=== PATIENT | male | born 1960 | race Caucasian/White ===

== ENCOUNTER 2016-02-26 20:27 | Emergency (ER) ==
[2016-02-26] MEDS ORDERED: MOTRIN ONE (20:57)
[2016-02-26] MEDS ORDERED: MOTRIN PO ONE (21:00)
--- NOTE | 2016-02-26 21:23 | PROVIDER DOCUMENTATION ---
HPI-Respiratory General <Andree Rowley - Last Filed: 02/26/16 21:35> - General Source: patient - History of Present Illness-Resp Quality of Pain: reports: aching Severity in ED: reports: mild Onset/Duration: reports: 3 days ago Timing: reports: still present Cough Quality/Degree: reports: mild Episode Frequency: no prior episodes Current Respiratory Medication Therapy: Initiated see nurses note Associated Symptoms: reports: cough, fever/chills, headache, short of breath, wheezing Similar Symptoms Previously?: No Recently seen or treated by another doctor?: No <Krysta Bush - Last Filed: 02/26/16 21:45> - General Chief Complaint: Cold Symptoms Stated Complaint: UPPER RESP. Time Seen by Provider: 02/26/16 21:05 Allergies/Adverse Reactions: Patient Allergies Allergy/AdvReac Type Severity Reaction Status Date / Time No Known Allergies Allergy Verified 02/26/16 20:56 Home Medications: Gabapentin 300 mg PO TID 02/26/16 Oxycodone HCl [Roxicodone] 30 mg PO 3-4XDAY PRN PRN 02/26/16 - History of Present Illness-Resp Nature of Presenting Problem: 55 year old M presents to the ED with a cc of cough and congestion x3 days. PT states today fever was up to 103 and took Tylenol. Pt states that it came down to 98. PT states that he drank a cup of coffee and fever went back up to 101. PT has had SOB, wheezing, and headache today also. Headache worse with couging. Son was in the ED Tuesday for a URI. (Krysta Bush) Review of Systems - Adult - REVIEW OF SYSTEMS - ADULT Constitutional: denies: chills, fever Eyes: reports: no symptoms reported Ears, Nose, Mouth & Throat: reports: no symptoms reported Cardiovascular: reports: no symptoms reported Respiratory: reports: cough, shortness of breath, wheezing Gastrointestinal: denies: nausea, vomiting Genitourinary: reports: no symptoms reported Musculoskeletal: denies: muscle aches, muscle weakness Integumentary: denies: skin sores/ulcer, skin thickening Neurological: reports: headache/migraines. denies: dizziness/vertigo Psychiatric: reports: no symptoms reported Endocrine: reports: no symptoms reported Hematologic/Lymphatic: reports: no symptoms reported Allergic/Immunologic: reports: no symptoms reported All Other Systems: Reviewed and Negative <Krysta Bush - Last Filed: 02/26/16 21:45> Past History - Adult - PAST MEDICAL HISTORY-ADULT Review of Records: reports: Nursing Assessment Review, Medications Reviewed Major Childhood Illnesses: reports: denies history Gastrointestinal: reports: other (hernia) - PRIOR SURGERIES/PROCEDURES Surgical/Procedure History: reports: orthopedic (extremity), back/neck - IMMUNIZATION STATUS Childhood Immunizations: See Nurse Assessment Flu Vaccine: See Nurse Assessment - SOCIAL HISTORY Smoking: cigarettes Provider spent 3-5 mins advising pt. on dangers of tobacco.: Discussed manners to quit use, and f/u contacts for add'l counseling. Substance Use: none/never Alcohol Use Frequency: never <Krysta Bush - Last Filed: 02/26/16 21:45> Physical Exam-General - PHYSICAL EXAM-ADULT Initial Vital Signs Reviewed: Yes - CONSTITUTIONAL General Appearance: appears well, alert, no apparent distress - HEAD, EARS, NOSE, MOUTH & THROAT HENMT: normocephalic/atraumatic, moist mucous membranes, normal ENT inspection - RESPIRATORY Respiratory: chest non-tender, normal breath sounds, wheezing (inspiratory) - CARDIOVASCULAR Cardiovascular: normal peripheral pulses, regular rate, rhythm, no edema - GASTROINTESTINAL (ABDOMEN) Abdominal Exam: normal bowel sounds, non tender, soft - SKIN Integumentary: normal color, normal turgor, warm/dry - NEUROLOGIC Neurologic: grossly normal, no motor/sensory deficits - PSYCHIATRIC Psych/Mental Status: normal mood/affect, normal thought content, normal thought process, oriented x 3 <Krysta Bush - Last Filed: 02/26/16 21:45> Progress - XRAY 1 XRAY: Bilateral XRAY Study: Chest Impression: Normal (NAD reviewed c Dr. Beal) <Andree Rowley - Last Filed: 02/26/16 21:35> <Krysta Bush - Last Filed: 02/26/16 21:45> - PLAN OF CARE/RESULTS Progress/Plan/Lab Results: Vital Signs Temp Pulse Resp BP Pulse Ox 02/26/16 20:50 103 F H 97 H 16 145/76 93 L No Known Allergies Allergy (Verified 02/26/16 20:56) Gabapentin 300 mg PO TID 02/26/16 Oxycodone HCl [Roxicodone] 30 mg PO 3-4XDAY PRN PRN 02/26/16 Laboratory 02/26/16 02/26/16 21:05 21:05 Influenza A (Rapid) NEGATIVE Influenza B (Rapid) NEGATIVE Group A Strep Rapid NEGATIVE Orders Category Date Time Status CHEST-2 VIEWS [RAD] Stat Exams 02/26/16 21:[address] Stat Lab 02/26/16 21:[address] Stat Lab 02/26/16 21:05 Completed Ibuprofen [Motrin] Med 02/26/16 20:57 Discontinued 800 mg .ROUTE .STK-MED ONE Ibuprofen [Motrin] Med 02/26/16 21:00 Discontinued 800 mg PO NOW ONE (Andree Rowley) plan of care: imaging, medications, labs Orders Category Date Time Status CHEST-2 VIEWS [RAD] Stat Exams 02/26/16 21:[address] Stat Lab 02/26/16 21:[address] Stat Lab 02/26/16 21:05 Completed Dexamethasone [Decadron] Med 02/26/16 21:36 Discontinued 4 mg IM NOW ONE Ibuprofen [Motrin] Med 02/26/16 20:57 Discontinued 800 mg .ROUTE .STK-MED ONE Ibuprofen [Motrin] Med 02/26/16 21:00 Discontinued 800 mg PO NOW ONE Ondansetron Odt [Zofran Odt] Med 02/26/16 21:38 Discontinued 4 mg PO NOW ONE Laboratory Tests 02/26/16 02/26/16 21:05 21:05 Influenza A (Rapid) NEGATIVE Influenza B (Rapid) NEGATIVE Group A Strep Rapid NEGATIVE Vital Signs - 24 hr 02/26/16 20:50 Temperature 103 F H Pulse Rate 97 H Respiratory 16 Rate Blood Pressure 145/76 O2 Sat by Pulse 93 L Oximetry Pt given results and will be d/c home w/ rx to follow up with PCP. Pt verbally understood instructions. PT remained clinically stable throughout the course of the ED stay and will return if symptoms worsen. (Krysta Bush) Departure - Departure Time of Disposition Order: 21:35 Certified Medical Emergency: Emergent <Andree Rowley - Last Filed: 02/26/16 21:35> <Krysta Bush - Last Filed: 02/26/16 21:45> - Departure DIAGNOSIS: Bronchitis Disposition: HOME 01 Condition: Stable Additional Instructions: ED Follow Up Instructions: You have been treated by a care provider in the Emergency Department. These instructions are being provided to you so you can have an understanding of how to care for yourself upon discharge. Upon discharge from the Emergency Department, you are responsible for making arrangements for follow-up care by a physician of your choice. Take all prescribed medications as directed. Return to the Emergency Department immediately for any new or worsening symptoms. You may call the Physician Referral phone number at [phone] to obtain a list of Physicians who are taking new patients. Prescriptions: Prednisone [Deltasone] 20 mg PO DIRECTED #12 tablet Albuterol Sulfate Inhaler [Ventolin Hfa] 2 puff INH Q6H PRN PRN #1 inhaler PRN Reason: Wheezing Azithromycin [Zithromax Z-Alan] 250 mg PO DIRECTED #1 pkg Referrals: Aries Pickering MD [Primary Care Provider] - Attestation - Scribe Verification/Attestation Scribe:: Krysta Bush Acting as Scribe for:: Andree Rowley Scribe documention review:: This chart was documented by a scribe and accurately reflects the service the provider performed and the decisions made by the provider. <Krysta Bush - Last Filed: 02/26/16 21:45> Physician Attestation - Physician Attestation I, the provider, attest to the following statement:: Andree Rowley Physician documentation Attestation:: This documentation recorded by the scribe accurately reflects the service I personally performed and the decisions made by me. <Krysta Bush - Last Filed: 02/26/16 21:45>
[2016-02-26] MEDS ORDERED: DECADRON IM ONE (21:36)
[2016-02-26] MEDS ORDERED: ZOFRAN ODT PO ONE (21:38)
[2016-02-26] MEDS ORDERED: TYLENOL PO ONE (21:57)
[2016-02-26 22:03] VITALS: BP 143/90
--- NOTE | 2016-02-27 06:56 | Diag Imaging Result Document ---
PROCEDURE NAME: CHEST-2 VIEWS - 02/26/2016 FRONTAL AND LATERAL CHEST, TWO VIEWS: FINDINGS: The lungs are well expanded. The heart is not enlarged. The vessels are not distended. There are no infiltrates. No pleural effusions. IMPRESSION: No pneumonia.
== END 2016-02-26 22:03 | disposition home or self-care (01) ==
LOC: P.ED 20:27
DX: J40 Bronchitis, not specified as acute or chronic (principal); R05 Cough; R06.02 Shortness of breath; R06.2 Wheezing; R51 Headache; Z79.899 Other long term (current) drug therapy
CPT/HCPCS: 71020; 87081; 87430; 87804; 96372; J1100